=== PATIENT | male | born 1990 | race African-American/Black ===

== ENCOUNTER 2016-10-26 21:30 | Emergency (ER) | payer OTHER ==
[~2016-10-26] VITALS: Ht 172.7 cm; Wt 75.0 kg
[2016-10-26 21:51] VITALS: BP 117/63; PULSE 66; RESP 20; TEMP 98.2; O2SAT 100
--- NOTE | 2016-10-26 21:51 | PD ---
HPI Chief Complaint: Anders act Time Seen by Provider: 21:45 Travel History International Travel<30 days: No Contact w/Intl Traveler<30days: No Traveled to known affect area: No History of Present Illness HPI 26-year-old black male presents to emergency department in police custody for medical clearance. He was placed under a Anders act at [facility] after medical evaluation. The patient had eloped from the facility and was found by police and brought back. He had been seen by the psychiatrist via telemedicine and it was determined that the patient required psychiatric evaluation and inpatient management. The ER physician placed him under a Anders act. I was informed that the patient has 3 felony warrant's pending. The patient here states that he feels rundown and weak. He has not been eating. He has not been sleeping. He has not taken his psychiatric medicines and some time and needs a refill. He does state that he has had suicidal thoughts but no active plan. No homicidal ideation. PFSH Past Medical History Narrative Medical Questionable SCHIZOPHRENIA Tetanus Vaccination: < 5 Years Past Surgical History Surgical History: No Previous Surgery Social History Alcohol Use: Yes Tobacco Use: Yes Substance Use: Yes (K2 and questionable [place]) Review of Systems ROS Limitations: Poor Historian Physical Exam Narrative GENERAL: This is a well-nourished, well-developed patient, in no apparent distress. SKIN: No rashes, ecchymoses or lesions. Warm and dry. HEAD: Atraumatic. Normocephalic. EYES: PERRL, EOMI, no discharge or injection. No scleral icterus. EARS: Clear NOSE: Nasal turbinates appear normal. THROAT: Mucosa pink and moist. Airway patent. NECK: Trachea midline. supple, moves head freely. LUNGS: Clear to auscultation. CV: Regular in rhythm. ABDOMEN: Soft nontender. EXT: No clubbing cyanosis or edema. MDM Medical Decision Making Medical Screen Exam Complete: Yes Emergency Medical Condition: Yes Medical Record Reviewed: Yes Differential Diagnosis Differential diagnoses: Medical clearance, schizophrenia, substance induced mood disorder, electrolyte abnormality Narrative Course The patient here is under Anders act. I reviewed the Anders act. He has been written by the ER physician and has not been completely filled out. He has not filled out the patient's sex, presenting complaint as well as he has not filled out the address of his facility. In good gene since the physician and filled out the first page and signed it we will continue to honor it. I have discussed with the officer that he has 3 outstanding felony warrants and that they supersede the Anders act. The patient has been medically cleared at the other facility and he is released into police custody for evaluation of his warrants. He can be seen by the psychiatrist at the halfway. This is medical clearance for psychiatric admission, medical clearance for halfway Diagnosis Primary Impression: Medical clearance for psychiatric admission Additional Impression: Medical clearance for incarceration Additional Instructions: Rest. Increase fluids. Avoid alcohol. Avoid illegal substances. Follow-up with [facility] for psychological evaluation treatment. Follow-up with [facility] for detox. Do not operate a car or any heavy machinery under the influence of alcohol or drugs. Follow-up with a medical doctor this week. Return to the ER for emergencies Med/Other Pt SpecificInfo: No Meds Exist/No RX given Disposition: [address] LAW ENFORCEMNT Condition: Stable Antonio Ortiz Oct 26, 2016 21:51
[2016-10-26 21:52] VITALS: BP 117/63; PULSE 66; RESP 20
== END 2016-10-26 22:57 ==
LOC: NEPD 21:30
DX: R45.851 Suicidal ideations (principal)
CPT/HCPCS: 99283